=== PATIENT | female | born 1975 | race Hispanic/Latino ===

== ENCOUNTER 2018-08-26 20:48 | Emergency (ER) | payer SELFPAY ==
[2018-08-26] MEDS ORDERED: HYDROCODONE/APAP 10/325 TAB ONE (21:15)
[2018-08-26] MEDS ORDERED: KETOROLAC 30 MG/ML INJ ONE (22:13)
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
--- NOTE | 2018-08-26 23:14 | RAD REPORT ---
EXAM DESCRIPTION: RAD - Knee Right 3 View - 08/26/2018 10:07 pm CLINICAL HISTORY: Right knee pain status post fall FINDINGS: No fracture or dislocation is seen. An area of sclerosis involves the proximal tibia. It m ost likely is benign. Follow up x-ray in 3 months is recommended to assess stability
== END 2018-08-26 22:41 | disposition home or self-care (01) ==
LOC: ER 20:48
DX: M23.91 Unspecified internal derangement of right knee (principal); W18.39XA Other fall on same level, initial encounter; Y93.9 Activity, unspecified; Y92.89 Other specified places as the place of occurrence of the external cause; Z91.048 Other nonmedicinal substance allergy status; E11.9 Type 2 diabetes mellitus without complications
CPT/HCPCS: 96372; 99284

== ENCOUNTER 2018-12-03 19:54 | Emergency (ER) | payer SELFPAY ==
[2018-12-03 20:26] LABS: Absolute Lymphocytes (CBC) 2.3 K/uL (0.7-4.9); Absolute Monocytes 0.8 K/uL (0.1-1.3); Basophils % 0.6 % (0-1.3); Hematocrit 36.8 % (36.0-45.0); Lymphocytes % 27.1 % (15.3-44.8); MPV 9.6 fL (7.6-11.3); Monocytes % 9.2 % (3.3-12.3); RBC Red Blood Cell Count 4.56 M/uL (3.86-4.86)
[2018-12-03] MEDS ORDERED: MEPERIDINE HCL 25 MG/0.5 ML ONE (20:39)
[2018-12-03] MEDS ORDERED: PROMETHAZINE 25 MG/ML VIAL ONE (20:39)
[2018-12-03 20:45] LABS: ALT/SGPT 18 U/L (12-78); AST/SGOT 9 U/L (15-37); Albumin 3.1 g/dL (3.4-5.0); Alkaline Phosphatase 72 U/L (45-117); BUN Blood Urea Nitrogen 15 mg/dL (7-18); Bicarbonate 26 mmol/L (21-32); Bilirubin Direct < 0.1 mg/dL (0-0.2); Bilirubin Total 0.2 mg/dL (0.2-1.0); Glucose Level 385 mg/dL (74-106); Lipase 304 U/L (73-393); Potassium 3.9 mmol/L (3.5-5.1); Protein, Total 7.7 g/dL (6.4-8.2); Sodium Level 135 mmol/L (136-145)
[2018-12-03] MEDS ORDERED: NA CHLORIDE 0.9% 1,000 ML ONE (21:33)
[2018-12-03 21:38] LABS: Urine Blood 1+ (NEG); Urine Glucose 2+ (NEG); Urine Protein TRACE (NEG); Urine Specific Gravity 1.015 (1.005-1.030)
--- NOTE | 2018-12-03 23:58 | ER ---
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 pt c/o nausea. pt denies V/D. Transition of care: patient was not received from another setting of care. Onset of symptoms is unknown. Risk Assessment: Do you want to hurt yourself or someone else? Patient reports no desire to harm self or others. Initial Sepsis Screen: Does the patient meet any 2 criteria? No. Patient's initial sepsis screen is negative. Does the patient have a suspected source of infection? No. Patient's initial sepsis screen is negative. Care prior to arrival: None. 20:00 Method Of Arrival: Ambulatory ak1 20:00 Acuity: JOCYE 3 ak1 Triage Assessment: 20:01 General: Appears uncomfortable. ak1 20:10 General: Behavior is calm, cooperative, appropriate for age. Pain: Complains of pain in cc3 left lower quadrant and right lower quadrant and left upper quadrant. GI: Reports lower abdominal pain, upper abdominal pain. 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 - Social history:: Smoking status: Patient/guardian denies using tobacco, Patient uses alcohol. - Ebola Screening: : No symptoms or risks identified at this time. Screenin:10 Abuse screen: Denies threats or abuse. Denies injuries from another. Nutritional cc3 screening: No deficits noted. Tuberculosis screening: No symptoms or risk factors identified. Fall Risk Ambulatory Aid- None/Bed Rest/Nurse Assist (0 pts). Gait- Normal/Bed Rest/Wheelchair (0 pts) Mental Status- Oriented to own ability (0 pts). Assessment: 20:10 GI: Bowel sounds present X 4 quads. Abd is soft and non tender X 4 quads. cc3 21:18 Reassessment: Patient appears in no apparent distress at this time. Patient and/or cc3 family updated on plan of care and expected duration. Pain level reassessed. Patient is alert, oriented x 3, equal unlabored respirations, skin warm/dry/pink. 22:31 Reassessment: Patient appears in no apparent distress at this time. Patient and/or cc3 family updated on plan of care and expected duration. Pain level reassessed. Patient is alert, oriented x 3, equal unlabored respirations, skin warm/dry/pink. 23:35 Reassessment: Patient appears in no apparent distress at this time. Patient and/or cc3 family updated on plan of care and expected duration. Pain level reassessed. Patient is alert, oriented x 3, equal unlabored respirations, skin warm/dry/pink. Vital Signs: 20:01 BP 117 / 86; Pulse 99; Resp 18; Temp 98.1; Pulse Ox 99% on R/A; Weight 70.76 kg (R); ak1 Height 5 ft. 6 in. (167.64 cm) (R); Pain 10/10; 21:00 BP 125 / 84; Pulse 95; Resp 20 S; Pulse Ox 97% on R/A; cc3 22:30 BP 112 / 61; Pulse 92; Resp 18 S; Pulse Ox 98% on R/A; cc3 23:57 BP 119 / 66; Pulse 90; Resp 17 S; Pulse Ox 98% on R/A; cc3 20:01 Body Mass Index 25.18 (70.76 kg, 167.64 cm) ak1 ED Course: 19:59 Patient arrived in ED. am2 20:01 Triage completed. ak1 20:01 Arm band placed on Patient placed in an exam room, on a stretcher, Patient notified of ak1 wait time. 20:07 Mario Calvillo PA is PHCP. jr8 20:07 Sharad Mcnamara MD is Attending Physician. jr8 20:10 Shaylee Gomez is Primary Nurse. cc3 20:10 Patient has correct armband on for positive identification. Bed in low position. Call cc3 light in reach. Side rails up X 1. Pulse ox on. NIBP on. 20:15 Inserted saline lock: 20 gauge in right antecubital area, using aseptic technique. cc3 Blood collected. 21:25 CT completed. Patient tolerated procedure well. Patient moved back from CT. bq 22:53 CT Abd/Pelvis - Without Cont In Process Unspecified. EDMS 12/04 00:15 No provider procedures requiring assistance completed. IV discontinued, intact, cc3 bleeding controlled, No redness/swelling at site. Pressure dressing applied. Administered Medications: 12/03 20:30 Drug: Demerol 25 mg Route: IVP; Site: right antecubital; cc3 21:11 Follow up: Response: No adverse reaction; Pain is decreased cc3 20:33 Drug: Phenergan 12.5 mg Route: IVP; Site: right antecubital; cc3 21:11 Follow up: Response: No adverse reaction; Nausea is decreased cc3 21:30 Drug: NS 0.9% 1000 ml Route: IV; Rate: 1000 ml; Site: right antecubital; cc3 22:30 Follow up: Response: No adverse reaction; IV Status: Completed infusion; IV Intake: cc3 1000ml Intake: 22:30 IV: 1000ml; Total: 1000ml. cc3 Outcome: 23:57 Discharge ordered by MD. bronson 12/04 00:15 Discharged to home ambulatory. cc3 Condition: stable Discharge instructions given to patient, Instructed on discharge instructions, follow up and referral plans. medication usage, Demonstrated understanding of instructions, follow-up care, medications, Prescriptions given X 3. 00:17 Patient left the ED. cc3 Signatures: Dispatcher [employer] EDSD Emily Knowles Josh, PA PA jr8 Elodia Gaines RN RN Jillian Pink Charlene cc3 Corrections: (The following items were deleted from the chart) 00:52 03 23:35 BP 119 / 66; Pulse 90bpm; Resp 17bpm; Spontaneous; Pulse Ox 98% RA; cc3 cc3
--- NOTE | 2018-12-03 23:59 | EDPHYS ---
Physician Documentation [facility] Name: Patricia Whitaker Age: 43 yrs Sex: Female : 1975 Arrival Date: 12/03/2018 Time: 19:59 Bed 20 Private MD: ED Physician Sharad Mcnamara HPI: 12/03 21:22 This 43 yrs old Female presents to ER via Ambulatory with complaints of jr8 Abdominal Pain. 21:22 The patient presents with abdominal pain in the left upper quadrant, right lower jr8 quadrant, in the left lower quadrant. Onset: The symptoms/episode began/occurred acutely, today. The symptoms do not radiate. Associated signs and symptoms: Pertinent positives: nausea, vomiting, and diarrhea. The symptoms are described as stabbing. Modifying factors: The symptoms are alleviated by nothing, the symptoms are aggravated by nothing. Severity of pain: At its worst the pain was moderate in the emergency department the pain is unchanged. The patient has not experienced similar symptoms in the past. The patient has not recently seen a physician. 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 - Social history:: Smoking status: Patient/guardian denies using tobacco, Patient uses alcohol. - Ebola Screening: : No symptoms or risks identified at this time. ROS: 21:22 Eyes: Negative for injury, pain, redness, and discharge, ENT: Negative for injury, jr8 pain, and discharge, Neck: Negative for injury, pain, and swelling, Cardiovascular: Negative for chest pain, palpitations, and edema, Respiratory: Negative for shortness of breath, cough, wheezing, and pleuritic chest pain, Back: Negative for injury and pain, MS/Extremity: Negative for injury and deformity, Skin: Negative for injury, rash, and discoloration, Neuro: Negative for headache, weakness, numbness, tingling, and seizure. 21:22 Abdomen/GI: Positive for abdominal pain, nausea, vomiting, and diarrhea, Negative for abdominal distension, anorexia, dysphagia, hematemesis, black/tarry stool, rectal pain, rectal bleeding, bowel incontinence, flatulence. Exam: 21:22 Eyes: Pupils equal round and reactive to light, extra-ocular motions intact. Lids and jr8 lashes normal. Conjunctiva and sclera are non-icteric and not injected. Cornea within normal limits. Periorbital areas with no swelling, redness, or edema. ENT: Nares patent. No nasal discharge, no septal abnormalities noted. Tympanic membranes are normal and external auditory canals are clear. Oropharynx with no redness, swelling, or masses, exudates, or evidence of obstruction, uvula midline. Mucous membranes moist. Neck: Trachea midline, no thyromegaly or masses palpated, and no cervical lymphadenopathy. Supple, full range of motion without nuchal rigidity, or vertebral point tenderness. No Meningismus. Cardiovascular: Regular rate and rhythm with a normal S1 and S2. No gallops, murmurs, or rubs. Normal PMI, no JVD. No pulse deficits. Respiratory: Lungs have equal breath sounds bilaterally, clear to auscultation and percussion. No rales, rhonchi or wheezes noted. No increased work of breathing, no retractions or nasal flaring. Back: No spinal tenderness. No costovertebral tenderness. Full range of motion. Skin: Warm, dry with normal turgor. Normal color with no rashes, no lesions, and no evidence of cellulitis. MS/ Extremity: Pulses equal, no cyanosis. Neurovascular intact. Full, normal range of motion. Neuro: Awake and alert, GCS 15, oriented to person, place, time, and situation. Cranial nerves II-XII grossly intact. Motor strength 5/5 in all extremities. Sensory grossly intact. Cerebellar exam normal. Normal gait. 21:22 Abdomen/GI: Inspection: abdomen appears normal, Bowel sounds: active, all quadrants, Palpation: soft, in all quadrants, moderate abdominal tenderness, in the left upper quadrant, right lower quadrant and left lower quadrant, mass, is not appreciated, rebound tenderness, is not appreciated, voluntary guarding, is not appreciated, involuntary guarding, is not appreciated, no appreciated organomegaly, Indicators: McBurney's point is not tender, Pereira's sign is negative, Rovsing's sign is negative, Liver: tenderness, is not appreciated. Vital Signs: 20:01 BP 117 / 86; Pulse 99; Resp 18; Temp 98.1; Pulse Ox 99% on R/A; Weight 70.76 kg (R); ak1 Height 5 ft. 6 in. (167.64 cm) (R); Pain 10/10; 21:00 BP 125 / 84; Pulse 95; Resp 20 S; Pulse Ox 97% on R/A; cc3 22:30 BP 112 / 61; Pulse 92; Resp 18 S; Pulse Ox 98% on R/A; cc3 23:57 BP 119 / 66; Pulse 90; Resp 17 S; Pulse Ox 98% on R/A; cc3 20:01 Body Mass Index 25.18 (70.76 kg, 167.64 cm) ak1 MDM: 20:07 Patient medically screened. jr8 23:56 Differential diagnosis: appendicitis, bowel obstruction, diverticulitis, non-specific jr8 abd pain, pancreatitis, Pyelonephritis, Ureterolithiasis, urinary tract infection, infectious colitis, ovarian or uterine mass. Data reviewed: vital signs, nurses notes, lab test result(s), radiologic studies, CT scan, and as a result, I will discharge patient. Data interpreted: Pulse oximetry: on room air is 98 %. Interpretation: normal. Counseling: I had a detailed discussion with the patient and/or guardian regarding: the historical points, exam findings, and any diagnostic results supporting the discharge/admit diagnosis, lab results, radiology results, the need for outpatient follow up, a family practitioner, a waist cutter, to return to the emergency department if symptoms worsen or persist or if there are any questions or concerns that arise at home. Response to treatment: the patient's symptoms have resolved after treatment. 12/04 00:07 ED course: Discussed with patient that we could not find any acute or surgically jr8 emergent findings on her CT or lab work. Patient stated that this is the third time she has had this and that nobody can find what is wrong. Asked if she has followed up with gynecology and gastroenterology. Patient has not as of yet. Recommended f/u with them at this point . 12/03 20:07 Order name: Basic Metabolic Panel; Complete Time: 21:03 jr8 12/03 20:07 Order name: CBC with Diff; Complete Time: 20:32 12/03 20:07 Order name: Creatinine for Radiology; Complete Time: 20:43 [facility] 12/03 20:07 Order name: Hepatic Function; Complete Time: 21:03 12/03 20:07 Order name: Lipase; Complete Time: 21:03 12/03 20:44 Order name: Urine Dipstick--Ancillary (enter results); Complete Time: 21:39 [facility] 12/03 20:07 Order name: IV Saline Lock; Complete Time: 20:26 [facility] 12/03 20:07 Order name: Labs collected and sent; Complete Time: 20:26 [facility] 12/03 20:07 Order name: Urine Test (obtain specimen); Complete Time: 20:26 [facility] 12/03 20:43 Order name: CT Abd/Pelvis - Without Cont 12/03 20:44 Order name: Urine --Ancillary (enter results); Complete Time: 21:39 [facility] 12/03 20:07 Order name: Urine Dipstick-Ancillary (obtain specimen); Complete Time: 20:26 Administered Medications: 12/03 20:30 Drug: Demerol 25 mg Route: IVP; Site: right antecubital; cc3 21:11 Follow up: Response: No adverse reaction; Pain is decreased cc3 20:33 Drug: Phenergan 12.5 mg Route: IVP; Site: right antecubital; cc3 21:11 Follow up: Response: No adverse reaction; Nausea is decreased cc3 21:30 Drug: NS 0.9% 1000 ml Route: IV; Rate: 1000 ml; Site: right antecubital; cc3 22:30 Follow up: Response: No adverse reaction; IV Status: Completed infusion; IV Intake: cc3 1000ml Disposition: 12/04 02:52 Co-signature as Attending Physician, Sharad Mcnamara MD. Disposition: 12/03/18 23:57 Discharged to Home. Impression: Abdominal and pelvic pain, Constipation. - Condition is Stable. - Discharge Instructions: Abdominal Pain, Adult, Constipation, Adult. - Prescriptions for Ibuprofen 800 mg Oral Tablet - take 1 tablet by ORAL route every 12 hours As needed take with food; 20 tablet. Zofran 4 mg Oral Tablet - take 1 tablet by ORAL route every 12 hours As needed; 20 tablet. Miralax 17 gram/dose Oral - take 1 packet by ORAL route once daily dilute powder in 8 ounces of water or juice; 1 box. - Medication Reconciliation Form, Thank You Letter, Antibiotic Education, Prescription Opioid Use form. - Follow up: Private Physician; When: 2 - 3 days; Reason: Recheck today's complaints, Continuance of care, Re-evaluation by your physician. - Problem is new. - Symptoms have improved. Signatures: Dispatcher [employer] EDMS Mario Calvillo PA PA jr8 Elodia Gaines, RN RN ak1 Sharad Mcnamara MD MD gs Cordel, Charlene cc3 Corrections: (The following items were deleted from the chart) 12/03 23:57 23:57 12/03/2018 23:57 Discharged to Home. Impression: Abdominal and pelvic pain. jr8 Condition is Stable. Forms are Medication Reconciliation Form, Thank You Letter, Antibiotic Education, Prescription Opioid Use. Follow up: Private Physician; When: 2 - 3 days; Reason: Recheck today's complaints, Continuance of care, Re-evaluation by your physician. Problem is new. Symptoms have improved. jr8 12/04 00:09 12/03 23:56 Differential diagnosis: appendicitis, bowel obstruction, diverticulitis, jr8 non-specific abd pain, pancreatitis, Pyelonephritis, Ureterolithiasis, urinary tract infection, infectious colitis jr8 12/04 00:17 12/03 23:57 12/03/2018 23:57 Discharged to Home. Impression: Abdominal and pelvic pain; cc3 Constipation. Condition is Stable. Forms are Medication Reconciliation Form, Thank You Letter, Antibiotic Education, Prescription Opioid Use. Follow up: Private Physician; When: 2 - 3 days; Reason: Recheck today's complaints, Continuance of care, Re-evaluation by your physician. Problem is new. Symptoms have improved. jr8
--- NOTE | 2018-12-04 14:18 | RAD REPORT ---
EXAM DESCRIPTION: Abdomen Pelvis Wo Contrast. CLINICAL HISTORY: 43 years Femal no IV or oral contrast; Abd pain COMPARISON: None. TECHNIQUE: Images were obtained in axial and coronal planes. Sagittal images incompletely available. No oral or intravenous contrast was administered. This exam was performed according to our departmental dose-optimization program, which includes autom ated exposure control, adjustment of the mA and/or kV according to patient size and/or less of iterat samara reconstruction technique. FINDINGS: No obstructing renal calcifications. No hydronephrosis bilaterally. Unremarkable bladder. Punctate calcifications within the pelvis thought to be vascular in nature. No abnormality involving the liver, spleen, pancreas or adrenal glands bilaterally. Contracted gallbl adder. Appendix is within normal limits. No bowel obstruction, perforation or inflammation. Moderate constip ation. Deviation uterus to to the right. Small periumbilical hernia which contains mesenteric fat. No dilatation of the abdominal aorta. Splenic artery calcifications. No adenopathy or abnormal fluid collection seen. No abnormality in the lower lungs bilaterally. No acute osseous abnormality. IMPRESSION: Nonobstructing renal calcifications bilaterally. No hydronephrosis bilaterally. Appendix within normal limits. Mildly contracted gallbladder. Electronically signed by Pradip Crocker MD 12/03/2018 11:06 PM SLOT MACHINE KEY PERSON Due to temporary technical issues with the PACS/Fluency reporting system, reports are being signed by the in house radiologist as a courtesy to ensure prompt reporting. The interpreting radiologist is f ully responsible for the content of the report.
== END 2018-12-04 00:17 | disposition home or self-care (01) ==
LOC: ER 19:54
DX: K59.00 Constipation, unspecified (principal); E11.9 Type 2 diabetes mellitus without complications; Z91.018 Allergy to other foods; Z91.048 Other nonmedicinal substance allergy status
CPT/HCPCS: 36415; 74176; 80048; 80076; 81003; 81025; 83690; 85025; 96361; 96374; 96375; 99284; J2175; J2550; J7030

== ENCOUNTER 2018-12-06 10:18 | Emergency (ER) | payer SELFPAY ==
[2018-12-06 11:15] LABS: Absolute Lymphocytes (CBC) 2.1 K/uL (0.7-4.9); Absolute Monocytes 0.5 K/uL (0.1-1.3); Basophils % 0.5 % (0-1.3); Eosinophils % 2.5 % (0-4.4); Hematocrit 40.1 % (36.0-45.0); Lymphocytes % 30.9 % (15.3-44.8); MPV 9.9 fL (7.6-11.3); Monocytes % 7.2 % (3.3-12.3); RBC Red Blood Cell Count 4.98 M/uL (3.86-4.86)
[2018-12-06] MEDS ORDERED: NA CHLORIDE 0.9% 1,000 ML ONE ×2 (11:18→12:35)
[2018-12-06 11:36] LABS: ALT/SGPT 18 U/L (12-78); AST/SGOT 10 U/L (15-37); Albumin 3.4 g/dL (3.4-5.0); Alkaline Phosphatase 86 U/L (45-117); BUN Blood Urea Nitrogen 17 mg/dL (7-18); Bicarbonate 24 mmol/L (21-32); Bilirubin Direct < 0.1 mg/dL (0-0.2); Bilirubin Total 0.2 mg/dL (0.2-1.0); Lipase 442 U/L (73-393); Potassium 4.6 mmol/L (3.5-5.1); Protein, Total 8.9 g/dL (6.4-8.2); Sodium Level 133 mmol/L (136-145)
[2018-12-06 11:39] LABS: Urine Blood TRACE (NEG); Urine Glucose 3+ (NEG); Urine Protein 1+ (NEG); Urine pH 5.5 (5.0-7.0)
[2018-12-06 11:41] LABS: Urine Bacteria 20-50 /HPF (<20); Urine White Blood Cell Casts 0-5 /LPF (NONE SEEN)
[2018-12-06 11:42] LABS: Urine Culture Reflex Order NOT NEEDED
[2018-12-06 11:47] LABS: Glucose Level 414 mg/dL (74-106)
[2018-12-06] MEDS ORDERED: CEFTRIAXONE/SWI 1gm 1 GM/10 ML SYR ONE (12:35)
[2018-12-06] MEDS ORDERED: INSULIN -REGULAR HUMAN 50 UNIT/0.5 ML ML ONE (12:35)
--- NOTE | 2018-12-06 14:04 | EDPHYS ---
Physician Documentation [facility] Name: Patricia Whitaker Age: 43 yrs Sex: Female : 1975 Arrival Date: 12/06/2018 Time: 10:21 Bed 4 Private MD: ED Physician Tino Burroughs HPI: 12/06 10:57 This 43 yrs old Female presents to ER via Ambulatory with complaints of High snw Blood Sugar, Dizziness. 10:57 The patient or guardian reports polyuria. Onset: The symptoms/episode began/occurred snw gradually. Associated signs and symptoms: Pertinent positives: ketones in urine, polyuria. Current symptoms: In the emergency department the patient's symptoms are unchanged from the initial presentation. It is unknown whether or not the patient has had similar symptoms in the past. The patient has been recently seen by a physician: the patient's primary care provider, earlier today, with similar presenting complaints, well woman exam/STI screening today. Pt in ED this weekend and dx constipation from pain medication use. 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 - Social history:: Smoking status: Patient/guardian denies using tobacco. - Ebola Screening: : No symptoms or risks identified at this time. ROS: 10:57 Eyes: Negative for injury, pain, redness, and discharge, ENT: Negative for injury, snw pain, and discharge, Neck: Negative for injury, pain, and swelling, Cardiovascular: Negative for chest pain, palpitations, and edema, Respiratory: Negative for shortness of breath, cough, wheezing, and pleuritic chest pain. 10:57 Back: Negative for injury and pain, : Negative for injury, bleeding, discharge, and swelling, MS/Extremity: Negative for injury and deformity, Skin: Negative for injury, rash, and discoloration, Neuro: Negative for headache, weakness, numbness, tingling, and seizure. 10:57 Constitutional: Positive for body aches, fatigue, malaise. 10:57 Abdomen/GI: Positive for abdominal pain. Exam: 10:55 Eyes: Pupils equal round and reactive to light, extra-ocular motions intact. Lids and snw lashes normal. Conjunctiva and sclera are non-icteric and not injected. Cornea within normal limits. Periorbital areas with no swelling, redness, or edema. ENT: Nares patent. No nasal discharge, no septal abnormalities noted. Tympanic membranes are normal and external auditory canals are clear. Oropharynx with no redness, swelling, or masses, exudates, or evidence of obstruction, uvula midline. Mucous membranes moist. Neck: Trachea midline, no thyromegaly or masses palpated, and no cervical lymphadenopathy. Supple, full range of motion without nuchal rigidity, or vertebral point tenderness. No Meningismus. Chest/axilla: Normal chest wall appearance and motion. Nontender with no deformity. No lesions are appreciated. Cardiovascular: Regular rate and rhythm with a normal S1 and S2. No gallops, murmurs, or rubs. Normal PMI, no JVD. No pulse deficits. Respiratory: Lungs have equal breath sounds bilaterally, clear to auscultation and percussion. No rales, rhonchi or wheezes noted. No increased work of breathing, no retractions or nasal flaring. Abdomen/GI: Soft, mildly tender, with normal bowel sounds. No distension or tympany. No guarding or rebound. Evidence of tenderness to low abd/perineum. Back: No spinal tenderness. No costovertebral tenderness. Full range of motion. Skin: Warm, dry with normal turgor. Normal color with no rashes, no lesions, and no evidence of cellulitis. MS/ Extremity: Pulses equal, no cyanosis. Neurovascular intact. Full, normal range of motion. Neuro: Awake and alert, GCS 15, oriented to person, place, time, and situation. Cranial nerves II-XII grossly intact. Motor strength 5/5 in all extremities. Sensory grossly intact. Cerebellar exam normal. Normal gait. Psych: Awake, alert, with orientation to person, place and time. Behavior, mood, and affect are within normal limits, depressed. 10:55 Constitutional: The patient appears alert, awake, anxious, uncomfortable. Vital Signs: 10:34 BP 133 / 85; Pulse 84; Resp 18 S; Temp 98.5(TE); Pulse Ox 99% on R/A; Weight 70.76 kg aa5 (R); Height 5 ft. 5 in. (165.10 cm) (R); Pain 0/10; 13:20 BP 128 / 73; Pulse 92; Resp 18; Pulse Ox 99% on R/A; aj 14:29 BP 121 / 85; Pulse 92; Resp 17; Pulse Ox 99% on R/A; aj 10:34 Body Mass Index 25.96 (70.76 kg, 165.10 cm) aa5 MDM: 10:43 Patient medically screened. snw 14:03 Data reviewed: vital signs, nurses notes. Data interpreted: Pulse oximetry: on room air snw is 99 %. Interpretation: normal. Counseling: I had a detailed discussion with the patient and/or guardian regarding: the historical points, exam findings, and any diagnostic results supporting the discharge/admit diagnosis, lab results, the need for outpatient follow up, to return to the emergency department if symptoms worsen or persist or if there are any questions or concerns that arise at home. Response to treatment: the patient's symptoms have mildly improved after treatment. Special discussion: Based on the patient's Hx, exam, and Dx evaluation, there is no indication for emergent surgery or inpatient Tx. It is understood by the patient/guardian that if the Sx's persist or worsen they need to return immediately for re-evaluation. Based on the history and exam findings, there is no indication for further emergent testing or inpatient evaluation. I discussed with the patient/guardian the need to see the primary care provider for further evaluation of the symptoms. 12/06 10:46 Order name: Basic Metabolic Panel; Complete Time: 11:53 snw 12/06 10:46 Order name: CBC with Diff; Complete Time: 11:53 snw 12/06 10:46 Order name: Hepatic Function; Complete Time: 11:53 snw 12/06 10:46 Order name: Lipase; Complete Time: 11:53 snw 12/06 10:46 Order name: Urine Culture snw 12/06 10:46 Order name: Urine Microscopic Only; Complete Time: 11:53 snw 12/06 10:46 Order name: IV Saline Lock; Complete Time: 11:05 snw 12/06 11:08 Order name: Urine Dipstick--Ancillary (enter results); Complete Time: 11:53 bd 12/06 11:08 Order name: Urine --Ancillary (enter results); Complete Time: 11:53 bd 12/06 10:46 Order name: Labs collected and sent; Complete Time: 11:05 snw 12/06 10:46 Order name: Urine Dipstick-Ancillary (obtain specimen); Complete Time: 11:05 snw 12/06 12:46 Order name: FSBS; Complete Time: 13:47 snw Administered Medications: 11:24 Drug: NS 0.9% 1000 ml Route: IV; Rate: 1 bolus; Site: left antecubital; aj 14:39 Follow up: Response: No adverse reaction; IV Status: Completed infusion; IV Intake: aj 1000ml 12:29 Drug: NS 0.9% 1000 ml Route: IV; Rate: 1 bolus; Site: left antecubital; aj 14:38 Follow up: Response: No adverse reaction; IV Status: Completed infusion; IV Intake: aj 1000ml 12:29 Drug: Rocephin 1 grams Route: IV; Rate: calculated rate; Site: left antecubital; aj 12:30 Follow up: Response: No adverse reaction; IV Status: Completed infusion; IV Intake: 10mlaj 12:29 Drug: Insulin Regular Human 5 units {Co-Signature: (Elkin Lizarraga RN).} Route: aj Sub-Q; Site: left upper abdomen; 14:37 Follow up: Response: Blood sugar is lowered aj 12:29 Drug: Insulin Regular Human 5 units {Co-Signature: (Elkin Lizarraga RN).} Route: IVP; aj Site: left antecubital; 14:36 Follow up: Response: Blood sugar is lowered aj Point of Care Testing: Blood Glucose: 10:37 Blood Glucose: High (>450 mg/dL); aa5 13:46 Blood Glucose: 294 mg/dL; jb1 Ranges: Critical Glucose Levels:Adult <50 mg/dl or >400 mg/dl <40 mg/dl or >180 mg/dl Disposition: 16:38 Co-signature as Attending Physician, Tino Burroughs MD. rn Disposition: 12/06/18 14:03 Discharged to Home. Impression: Diabetes mellitus due to underlying condition with hyperglycemia, Urinary tract infection, site not specified. - Condition is Stable. - Discharge Instructions: Type 2 Diabetes Mellitus, Diagnosis, Adult, Urinary Tract Infection, Adult, Diabetes Mellitus and Food, Rehydration, Adult. - Prescriptions for Macrobid 100 mg Oral Capsule - take 1 capsule by ORAL route every 12 hours for 10 days; 20 capsule. Doxycycline Hyclate 100 mg Oral Tablet - take 1 tablet by ORAL route every 12 hours; 20 tablet. promethazine 25 mg Oral Tablet - take 1 tablet by ORAL route every 6 hours As needed; 12 tablet. - Work release form, Medication Reconciliation Form, Thank You Letter, Antibiotic Education, Prescription Opioid Use form. - Follow up: Private Physician; When: 2 - 3 days; Reason: Recheck today's complaints, Continuance of care, Re-evaluation by your physician. Follow up: Emergency Department; When: As needed; Reason: Worsening of condition. Signatures: Dispatcher [employer] EDMS Jillian Figueroa RN RN aj Therrien, Shelly, ANABELL-C MANAGER [employer] Tino Burroughs MD MD rn Calderon, Audri, RN RN aa5 Elkin Lizarraga RN bp Corrections: (The following items were deleted from the chart) 14:39 14:03 12/06/2018 14:03 Discharged to Home. Impression: Diabetes mellitus due to aj underlying condition with hyperglycemia; Urinary tract infection, site not specified. Condition is Stable. Discharge Instructions: Type 2 Diabetes Mellitus, Diagnosis, Adult, Urinary Tract Infection, Adult, Diabetes Mellitus and Food, Rehydration, Adult. Prescriptions for Macrobid 100 mg Oral Capsule - take 1 capsule by ORAL route every 12 hours for 10 days; 20 capsule, Doxycycline Hyclate 100 mg Oral Tablet - take 1 tablet by ORAL route every 12 hours; 20 tablet, promethazine 25 mg Oral Tablet - take 1 tablet by ORAL route every 6 hours As needed; 12 tablet. and Forms are Work release form, Medication Reconciliation Form, Thank You Letter, Antibiotic Education, Prescription Opioid Use. Follow up: Private Physician; When: 2 - 3 days; Reason: Recheck today's complaints, Continuance of care, Re-evaluation by your physician. Follow up: Emergency Department; When: As needed; Reason: Worsening of condition. snw
--- NOTE | 2018-12-06 14:04 | ER ---
Nurse's Notes [facility] Name: Patricia Whitaker Age: 43 yrs Sex: Female : 1975 Arrival Date: 12/06/2018 Time: 10:21 Bed 4 Private MD: Diagnosis: Diabetes mellitus due to underlying condition with hyperglycemia;Urinary tract infection, site not specified Presentation: 12/06 10:31 Presenting complaint: Patient states: "I went to a clinic for a regular check up and aa5 they said that my blood sugar was 540 to come to the ER". Pt c/o dizziness, pt also reports nausea. Transition of care: patient was not received from another setting of care. Onset of symptoms was December 06, 2018. Risk Assessment: Do you want to hurt yourself or someone else? Patient reports no desire to harm self or others. Initial Sepsis Screen: Does the patient meet any 2 criteria? No. Patient's initial sepsis screen is negative. Does the patient have a suspected source of infection? No. Patient's initial sepsis screen is negative. Care prior to arrival: None. 10:31 Method Of Arrival: Ambulatory aa5 10:31 Acuity: JOYCE 2 aa5 RABBIT BREEDER: 10:34 LMP 11/14/2018 aa5 Historical: - Allergies: 10:34 Iodine; aa5 10:34 Yeast; aa5 - Home Meds: 10:34 glyburide 5 mg Oral tab 1 tab 2 times per day [Active]; metformin 850 mg Oral tab 1 tab aa5 2 times per day [Active]; - PMHx: 10:34 Diabetes - NIDDM; aa5 - PSHx: 10:34 ; aa5 - Immunization history:: Adult Immunizations unknown. - Social history:: Smoking status: Patient/guardian denies using tobacco. - Ebola Screening: : No symptoms or risks identified at this time. Screenin:09 Abuse screen: Denies threats or abuse. Denies injuries from another. Nutritional aj screening: No deficits noted. Tuberculosis screening: No symptoms or risk factors identified. Fall Risk None identified. Assessment: 11:09 General: Appears in no apparent distress. comfortable, Behavior is calm, cooperative, aj appropriate for age. Pain: Complains of pain in entire body. Neuro: Level of Consciousness is awake, alert, obeys commands, Oriented to person, place, time, situation, Appropriate for age. Respiratory: Airway is patent Respiratory effort is even, unlabored, Respiratory pattern is regular, symmetrical. : Reports urinary frequency. Derm: Skin is intact, is healthy with good turgor, Skin is pink, warm \\T\\ dry. normal. 14:33 Reassessment: Patient appears in no apparent distress at this time. No changes from aj previously documented assessment. Patient and/or family updated on plan of care and expected duration. Pain level reassessed. Patient is alert, oriented x 3, equal unlabored respirations, skin warm/dry/pink. Patient states feeling better. Patient states symptoms have improved. Vital Signs: 10:34 BP 133 / 85; Pulse 84; Resp 18 S; Temp 98.5(TE); Pulse Ox 99% on R/A; Weight 70.76 kg aa5 (R); Height 5 ft. 5 in. (165.10 cm) (R); Pain 0/10; 13:20 BP 128 / 73; Pulse 92; Resp 18; Pulse Ox 99% on R/A; aj 14:29 BP 121 / 85; Pulse 92; Resp 17; Pulse Ox 99% on R/A; aj 10:34 Body Mass Index 25.96 (70.76 kg, 165.10 cm) aa5 ED Course: 10:21 Patient arrived in ED. mr 10:30 [facility] Clarke [facility]C [facility] snw 10:30 Tino Burroughs MD is Attending Physician. snw 10:32 Triage completed. aa5 10:32 Arm band placed on. aa5 10:38 Elkin Lizarraga, FARHAD is Primary Nurse. bp 11:09 Patient has correct armband on for positive identification. aj 11:09 Inserted saline lock: 20 gauge in left antecubital area, using aseptic technique. Blood aj collected. 14:33 No provider procedures requiring assistance completed. IV discontinued, intact, aj bleeding controlled, No redness/swelling at site. Pressure dressing applied. Administered Medications: 11:24 Drug: NS 0.9% 1000 ml Route: IV; Rate: 1 bolus; Site: left antecubital; aj 14:39 Follow up: Response: No adverse reaction; IV Status: Completed infusion; IV Intake: aj 1000ml 12:29 Drug: NS 0.9% 1000 ml Route: IV; Rate: 1 bolus; Site: left antecubital; aj 14:38 Follow up: Response: No adverse reaction; IV Status: Completed infusion; IV Intake: aj 1000ml 12:29 Drug: Rocephin 1 grams Route: IV; Rate: calculated rate; Site: left antecubital; aj 12:30 Follow up: Response: No adverse reaction; IV Status: Completed infusion; IV Intake: 10mlaj 12:29 Drug: Insulin Regular Human 5 units {Co-Signature: (Elkin Lizarraga RN).} Route: aj Sub-Q; Site: left upper abdomen; 14:37 Follow up: Response: Blood sugar is lowered aj 12:29 Drug: Insulin Regular Human 5 units {Co-Signature: (Elkin Lizarraga RN).} Route: IVP; aj Site: left antecubital; 14:36 Follow up: Response: Blood sugar is lowered aj Point of Care Testing: Blood Glucose: 10:37 Blood Glucose: High (>450 mg/dL); aa5 13:46 Blood Glucose: 294 mg/dL; jb1 Ranges: Intake: 12:30 IV: 10ml; Total: 10ml. aj 14:38 IV: 1000ml; Total: 1010ml. aj 14:39 IV: 1000ml; Total: 2010ml. aj Outcome: 14:03 Discharge ordered by . contreras 14:33 Discharged to home ambulatory. aj 14:33 Condition: good 14:33 Discharge instructions given to patient, Instructed on discharge instructions, follow up and referral plans. medication usage, Demonstrated understanding of instructions, follow-up care, medications, Prescriptions given X 3. 14:39 Patient left the ED. aj Addendum: 12/09/2018 07:32 Addendum: Culture Results: Positive urine culture. No further action required. h b Signatures: Cipriano Valerio jb1 Jillian Figueroa RN RN Arpita Benson, GETTER WELDER-C GETTER WELDER-Ethan Celeste DormanMichelle RN FARHAD aa5 Maria L Phan RN RN hb Peltier, Brian, RN RN bp Elkin Lizarraga RN bp
== END 2018-12-06 14:39 | disposition home or self-care (01) ==
LOC: ER 10:18
DX: N39.0 Urinary tract infection, site not specified (principal); E11.65 Type 2 diabetes mellitus with hyperglycemia; Z91.018 Allergy to other foods; Z91.048 Other nonmedicinal substance allergy status
CPT/HCPCS: 36415; 80048; 80076; 81003; 81015; 81025; 82962; 83690; 85025; 87077; 87086; 87088; 87186; 96361; 96372; 96374; 96375; 99284; J0696; J7030

== ENCOUNTER 2021-06-27 08:56 | Emergency (ER) | payer SELFPAY ==
--- OUTSIDE RECORDS SUMMARY | 2021-06-27 08:58 | XMS REPORT | Continuity of Care Document ---
:1975 Author Organization [facility] t Address [address] [place] [address] [place] [address] Care Team Providers Name Role Phone Unavailable Unavailable Unavailable Problems This patient has no known problems. Allergies, Adverse Reactions, Alerts This patient has no known allergies or adverse reactions. Medications This patient has no known medications. Procedures This patient has no known procedures. Results This patient has no known results.
[2021-06-27 09:07] LABS: Urine Blood 2+ (Negative); Urine Glucose 2+ (Negative); Urine Protein Negative (Negative); Urine Specific Gravity <=1.005 (1.005-1.030); Urine pH 6.5 (5.0-7.0)
[2021-06-27 09:23] LABS: Absolute Lymphocytes (CBC) 2.5 K/uL (0.7-4.9); Basophils % 0.7 % (0-1.3); Hematocrit 30.9 % (36.0-45.0); Lymphocytes % 37.4 % (15.3-44.8); MPV 8.7 fL (7.6-11.3); RBC Red Blood Cell Count 3.98 M/uL (3.86-4.86)
[2021-06-27 09:29] LABS: BUN Blood Urea Nitrogen 17 mg/dL (7-18); Bicarbonate 22 mmol/L (21-32); Glucose Level 332 mg/dL (74-106); Sodium Level 134 mmol/L (136-145)
[2021-06-27] MEDS ORDERED: NA CHLORIDE 0.9% 1,000 ML ONE ×2 (09:33→10:55)
[2021-06-27 10:20] LABS: Anisocytosis 1+; Blood Morphology Comment NOTED (NOT SEEN); Macrocytosis 1+; Platelet Estimate ADEQ; White Blood Cell Scan OK (OK)
[2021-06-27 10:21] LABS: Polychromasia SLIGHT
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
[2021-06-27 11:45] VITALS: TEMP 98
[2021-06-27 11:46] VITALS: BP 134/90; O2SAT 100
== END 2021-06-27 11:30 | disposition home or self-care (01) ==
LOC: ER 08:56
DX: E11.65 Type 2 diabetes mellitus with hyperglycemia (principal); Z88.8 Allergy status to other drugs, medicaments and biological substances; Z91.018 Allergy to other foods
CPT/HCPCS: 36415; 80048; 81003; 82010; 82947; 85025; 96360; 96361; 99284; J7030

== ENCOUNTER → 2023-12-20 | Emergency (ER) | payer SELFPAY ==
[~2023-12-20] MED LIST: CEFTRIAXONE 1000 MG/VIAL ONE; DICYCLOMINE HCL 20 MG/2 ML AMP IM ONE; DIPHENOX/ATROP SULF 1 TAB PO ONE; INSULIN REGULAR (HUMAN) 100 UNIT/ML ONE; METOCLOPRAMIDE 10 MG/2mL INJ ONE; MORPHINE 4 MG/ML SYR ONE; NA CHLORIDE 0.9% 2,000 ML ONE; NA CHLORIDE 0.9% 50 ML ONE; ONDANSETRON 4 MG/2 ML VIAL ONE; metroNIDAZOLE 500 MG TABLET ONE
--- OUTSIDE RECORDS SUMMARY | 2023-12-20 01:17 | XMS REPORT | Continuity of Care Document ---
Author Name Unknown Address [address] [place] [address] [facility] Address [address] [place] [address] [address] [place] [address] Care Team Providers Care Trouble Dispatcher Name Role Phone Unavailable Unavailable Unavailable Allergies, Adverse Reactions, Alerts Allergy Name Allergy Type Status Severity Reaction(s) Onset Date Inactive Date Treating Clinician Comments Source IODINE DRUG INGREDI Active Hives 06-17 00:00: 00 [facility] Encounters Start Date/Time End Date/Time Encounter Type Admission Type Attending Clinicians Care Facility Care Department Encounter ID Source 2021-08-31 01:28:36 Emergency [facility] [id number] [facility]
[2023-12-20 02:30] LABS: Absolute Lymphocytes (CBC) 1.5 K/uL (0.7-4.9); Hematocrit 33.8 % (36.0-45.0); Lymphocytes % 10.7 % (15.3-44.8); MCV 84.9 fL (80-100); MPV 9.3 fL (7.6-11.3); Platelets 262 thou/uL (152-406); RBC Red Blood Cell Count 3.98 M/uL (3.86-4.86)
[2023-12-20 02:30] LABS: Calcium Oxalate Crystals- Ur Few /HPF (None Seen); Specific Gravity 1.023 (1.005-1.030); Urine Bacteria None Seen /HPF (<20); Urine Bilirubin NEGATIVE (Negative); Urine Blood 2+ (Negative); Urine Clarity Extremely Turbid (Clear); Urine Color Yellow (Yellow); Urine Glucose 3+ (Negative); Urine Mucus Slight /HPF (None Seen); Urine Protein 3+ (Negative); Urine Urobilinogen Normal (Normal); Urine pH 5.5 (5.0-7.0)
[2023-12-20 02:33] LABS: Specific Gravity 1.023 (1.005-1.030)
[2023-12-20 03:11] LABS: Albumin 2.4 g/dL (3.4-5.0); Bilirubin Total 0.1 mg/dL (0.2-1.0)
[2023-12-20 03:18] LABS: Potassium 3.9 mEq/L (3.5-5.1)
--- NOTE | 2023-12-20 05:50 | EDPHYS ---
Physician Documentation [facility] Name: Patricia Whitaker Age: 48 yrs Sex: Female : 1975 Arrival Date: 12/20/2023 Time: 01:14 Bed 14 Private MD: ED Physician Sergio Moulton HPI: 12/20 01:55 This 48 yrs old Female presents to ER via Ambulatory with complaints of sp4 Abdominal Pain, Diarrhea. 05:44 48-year-old female past medical history of type 2 diabetes, presents with acute onset sp4 of diffuse abdominal pain and associated diarrhea and nausea for the past 8 days. . Historical: - Allergies: 01:41 Iodine; vc1 01:41 Yeast; vc1 - PMHx: 01:41 Diabetes - NIDDM; vc1 - PSHx: 02:17 Ligation of fallopian tube; vc1 - Immunization history:: Adult Immunizations unknown. - Social history:: Smoking status: Patient denies any tobacco usage or history of. - Family history:: not pertinent. ROS: 05:44 Constitutional: Negative for fever, chills, and weight loss, positive abdominal pain, sp4 positive diarrhea, positive nausea. 05:44 All other systems are negative, Exam: 05:44 Constitutional: This is a well developed, well nourished patient who is awake, alert, sp4 and in no acute distress. Head/Face: Normocephalic, atraumatic. Eyes: Pupils equal round and reactive to light, extra-ocular motions intact. Lids and lashes normal. Conjunctiva and sclera are not injected. Cornea within normal limits. Periorbital areas with no swelling, redness, or edema. ENT: Nares patent. No nasal discharge, no septal abnormalities noted. Tympanic membranes are normal and external auditory canals are clear. Oropharynx with no redness, swelling, or masses, exudates, or evidence of obstruction, uvula midline. Mucous membranes moist. Neck: Trachea midline, no thyromegaly or masses palpated, and no cervical lymphadenopathy. Supple, full range of motion without nuchal rigidity, or vertebral point tenderness. Chest/axilla: Normal chest wall appearance and motion. Nontender with no deformity. No lesions are appreciated. Cardiovascular: Regular rate and rhythm with a normal S1 and S2. No gallops, murmurs, or rubs. Normal PMI, no JVD. No pulse deficits. Respiratory: Lungs have equal breath sounds bilaterally, clear to auscultation and percussion. No rales, rhonchi or wheezes noted. No increased work of breathing, no retractions or nasal flaring. Abdomen/GI: Soft, with normal bowel sounds. No distension or tympany. No guarding or rebound. Positive lower abdominal tenderness. Back: No spinal tenderness. No costovertebral tenderness. Skin: Warm, dry with normal turgor. Normal color with no rashes, no lesions, and no evidence of cellulitis. MS/ Extremity: Pulses equal, no cyanosis. Neurovascular intact. Full, normal range of motion. Neuro: Awake and alert, GCS 15, oriented to person, place, time, and situation. Cranial nerves II-XII grossly intact. Motor strength 5/5 in all extremities. Sensory grossly intact. Psych: Awake, alert, with orientation to person, place and time. Behavior, mood, and affect are within normal limits Vital Signs: 01:39 Weight 75.75 kg; Height 5 ft. 6 in. ; Pain 10/10; vc1 02:18 BP 166 / 77; Pulse 84; Resp 18; Temp 98.2; Pulse Ox 100% ; vc1 03:00 BP 162 / 76; Pulse 95; Resp 20; Pulse Ox 100% on R/A; pf1 04:00 BP 153 / 75; Pulse 98; Resp 17; Pulse Ox 97% on R/A; Pain 0/10; pf1 05:00 BP 141 / 77; Pulse 95; Resp 16; Pulse Ox 100% on R/A; Pain 0/10; pf1 05:55 BP 119 / 63; Pulse 93; Resp 17; Pulse Ox 98% ; Pain 0/10; jj7 01:39 Body Mass Index 26.95 (75.75 kg, 167.64 cm) vc1 01:39 Pain Scale: Adult vc1 04:00 Pain Scale: Adult pf1 05:00 Pain Scale: Adult pf1 05:55 Pain Scale: Adult jj7 MDM: 02:41 Patient medically screened. sp4 05:34 ED course: COMPARISON: CT abdomen and pelvis without contrast December 03, 2018. sp4 FINDINGS: Lung bases: Unremarkable. No mass. No consolidation. ABDOMEN: Liver: Unremarkable. Gallbladder and bile ducts: Unremarkable. No calcified stones. No ductal dilation. Pancreas: Unremarkable. No ductal dilation. Spleen: Unremarkable. No splenomegaly. Adrenals: Unremarkable. No mass. Kidneys and ureters: Unremarkable. No obstructing stones. No hydronephrosis. Stomach and bowel: Scattered colonic diverticula. No obstruction. No mucosal thickening. PELVIS: Appendix: The appendix is mildly dilated to 8 mm in diameter, similar to prior. Bladder: There may be diffuse bladder wall thickening, but the bladder is relatively nondistended limiting evaluation. Reproductive: Unremarkable as visualized. ABDOMEN and PELVIS: Intraperitoneal space: Unremarkable. No free air. No significant fluid collection. Bones/joints: Disc space narrowing with degenerative endplate changes at L4-5 and L5-S1. No acute fracture. No dislocation. Soft tissues: Small fat-containing periumbilical hernia. Vasculature: Unremarkable. No abdominal aortic aneurysm. Lymph nodes: Unremarkable. No enlarged lymph nodes. IMPRESSION: There may be diffuse bladder wall thickening, but the bladder is relatively nondistended limiting evaluation. Correlate with any concern for cystitis. Electronically signed by: Zheng Carrington MD 12/20/2023 04:11 AM. 05:46 Differential diagnosis: Nonspecific abd pain, gastritis, appendicitis, diverticulitis, sp4 viral gastroenteritis, gastroenteritis. Data reviewed: vital signs, nurses notes, lab test result(s), radiologic studies, CT scan. ED course: Improved. Will discharge home. . 12/20 01:47 Order name: CBC with Diff; Complete Time: 02:41 sb4 12/20 01:47 Order name: CMP; Complete Time: 05:22 sb4 12/20 01:47 Order name: Lipase; Complete Time: 05:22 sb4 12/20 01:47 Order name: Test, Urine; Complete Time: 02:41 sb4 12/20 01:47 Order name: Urinalysis w/ reflexes; Complete Time: 02:41 sb4 12/20 02:09 Order name: Glucose, Ancillary Testing; Complete Time: 02:41 EDMS 12/20 05:40 Order name: Glucose, Ancillary Testing; Complete Time: 05:56 EDMS 12/20 05:42 Order name: Glucose, Ancillary Testing EDMS 12/20 01:47 Order name: CT Abd/Pelvis - Without Contrast sb4 12/20 01:47 Order name: IV Saline Lock; Complete Time: 02:18 sb4 12/20 01:47 Order name: Labs collected and sent; Complete Time: :18 sb4 Administered Medications: 03:12 Drug: Ondansetron IVP 4 mg IVP once; over 2 minutes Route: IVP; Site: left antecubital; jj7 04:10 Follow up: Response: No adverse reaction; Marked relief of symptoms pf1 03:12 Drug: metoCLOPramide IVP 10 mg IVP once; over 1 to 2 minutes Route: IVP; Site: left [facility] antecubital; 04:10 Follow up: Response: No adverse reaction; Marked relief of symptoms pf1 03:12 Drug: NS 0.9% IV 1000 ml IV at 1 bolus Per protocol; 1000 mL bolus Route: IV; Rate: 1 jj7 bolus; Site: left antecubital; 04:10 Follow up: Response: No adverse reaction; IV Status: Completed infusion; IV Intake: pf1 1000ml 03:13 Drug: morphine IVP or IV 4 mg IVP once over 4 mins Route: IVP; Infused Over: 4 mins; jj7 Site: left antecubital; 03:30 Follow up: Response: Marked relief of symptoms jj7 03:13 Drug: metroNIDAZOLE PO 500 mg PO once Route: PO; jj7 04:00 Follow up: Response: No adverse reaction pf1 03:16 Drug: NS 0.9% IV 1000 ml IV at 1 bolus Per protocol; 1000 mL bolus Route: IV; Rate: 1 jj7 bolus; Site: left antecubital; 04:10 Follow up: Response: No adverse reaction; IV Status: Completed infusion; IV Intake: pf1 1000ml 03:18 Drug: Dicyclomine IM 20 mg IM once Route: IM; Site: right ventrogluteal; jj7 04:10 Follow up: Response: No adverse reaction; Marked relief of symptoms pf1 03:18 Drug: Insulin Regular Human IVP 5 units IVP once {Co-Signature: pf1 (Alissa Manzano jj7 RN).} Route: IVP; Site: left antecubital; 04:00 Follow up: Response: No adverse reaction; Marked relief of symptoms pf1 03:18 Drug: Rocephin - Rocephin (cefTRIAXone) IVPB 1 grams IVPB once over 30 mins; (mix in 50 jj7 mL NS) Route: IVPB; Infused Over: 30 mins; Site: left antecubital; 03:48 Follow up: Response: No adverse reaction; Marked relief of symptoms; IV Status: pf1 Completed infusion; IV Intake: 50ml 05:52 Drug: Diphenoxylate-Atropine PO 2 tabs PO once Route: PO; jj7 06:04 Follow up: Response: No adverse reaction jj7 Disposition Summary: 12/20/23 05:49 Discharge Ordered Notes: Location: Home sp4 Problem: new sp4 Symptoms: have improved sp4 Condition: Stable sp4 Diagnosis - Acute gastroenteritis, acute diarrheal illness sp4 Followup: sp4 - With: Tono Jean DO - When: 7 - 10 days - Reason: Recheck today's complaints Discharge Instructions: - Discharge Summary Sheet sp4 - Diarrhea, Adult, [id number] sp4 - Clear Liquid Diet, Adult, [id number] sp4 Forms: - Patient Portal Instructions sp4 Prescriptions: - Flagyl 500 mg Oral Tablet - take 1 tablet ORAL route every 8 hours for 10 days; 30 tablet; Refills: 0, sp4 Product Selection Permitted - Lomotil 2.5-0.025 mg Oral tablet - take 1 tablet ORAL route every 6 hours As needed PRN diarrhea; 30 tablet; sp4 Refills: 0, Product Selection Permitted - promethazine 25 mg Oral tablet - take 1 tablet ORAL route every 6 hours As needed PRN nausea; 30 tablet; sp4 Refills: 0, Product Selection Permitted - dicyclomine 20 mg Oral tablet - take 1 tablet ORAL route every 6 hours PRN abdominal cramps; 30 tablet; sp4 Refills: 0, Product Selection Permitted Signatures: Dispatcher [employer] Pamela Oviedo RN RN vc1 Darío Aragon RN RN jj7 Lorena Li PA-C PASergio Rapp MD MD sp4 Alissa Manzano RN pf1 Alissa Manzano RN pf1 Corrections: (The following items were deleted from the chart) 02:17 01:41 PSHx: None; vc1 vc1
--- NOTE | 2023-12-20 05:50 | ER ---
Nurse's Notes [facility] Name: Patricia Whitaker Age: 48 yrs Sex: Female : 1975 Arrival Date: 12/20/2023 Time: 01:14 Bed 14 Private MD: Diagnosis: Acute gastroenteritis, acute diarrheal illness Presentation: 12/20 01:39 Chief complaint: Patient states: I have diarrhea for 5 days about 10 oclock tonight I vc1 started having abdominal pain. Coronavirus screen: diarrhea, vomiting. Client presents with at least one sign or symptom that may indicate coronavirus-19. Ebola Screen: Patient negative for fever greater than or equal to 101.5 degrees Fahrenheit, and additional compatible Ebola Virus Disease symptoms Patient denies exposure to infectious person. Patient denies travel to an Ebola-affected area in the 21 days before illness onset. No symptoms or risks identified at this time. Initial Sepsis Screen: Does the patient have a suspected source of infection? Yes: Acute abdominal pain. Risk Assessment: Do you want to hurt yourself or someone else? Patient reports no desire to harm self or others. Onset of symptoms was December 19, 2023 at 22:00. Care prior to arrival: Medication(s) given: ketoralac. 01:39 Method Of Arrival: Ambulatory vc1 01:39 Acuity: JOYCE 3 vc1 01:54 Initial Sepsis Screen: Does the patient meet any 2 criteria? No. Patient's initial vc1 sepsis screen is negative. Triage Assessment: 01:50 General: Appears distressed, uncomfortable, Behavior is cooperative, crying. Pain: vc1 Complains of pain in abdomen Pain radiates to low back area Pain currently is 10 out of 10 on a pain scale. Quality of pain is described as crampy, sharp, Pain began suddenly, 4 hours ago. Is continuous, Also complains of diarrhea, vomiting. EENT: No deficits noted. No signs and/or symptoms were reported regarding the EENT system. Neuro: Level of Consciousness is awake, alert, obeys commands, Oriented to person, place, time, situation, Appropriate for age. Cardiovascular: No deficits noted. Respiratory: Airway is patent Respiratory effort is even, unlabored, Respiratory pattern is regular, symmetrical. GI: Abdomen is flat, non-distended, Reports lower abdominal pain, upper abdominal pain, diarrhea, nausea, vomiting. : No deficits noted. No signs and/or symptoms were reported regarding the genitourinary system. Derm: No deficits noted. No signs and/or symptoms reported regarding the dermatologic system. Musculoskeletal: No deficits noted. No signs and/or symptoms reported regarding the musculoskeletal system. Historical: - Allergies: 01:41 Iodine; vc1 01:41 Yeast; vc1 - PMHx: 01:41 Diabetes - NIDDM; vc1 - PSHx: 02:17 Ligation of fallopian tube; vc1 - Immunization history:: Adult Immunizations unknown. - Social history:: Smoking status: Patient denies any tobacco usage or history of. - Family history:: not pertinent. Screenin:53 [facility] ED Fall Risk Assessment (Adult) History of falling in the last 3 months, vc1 including since admission No falls in past 3 months (0 pts) Confusion or Disorientation No (0 pts) Intoxicated or Sedated No (0 pts) Impaired Gait No (0 pts) Mobility Assist Device Used No (0 pt) Altered Elimination No (0 pt) Score/Fall Risk Level 0 - 2 = Low Risk Oriented to surroundings, Maintained a safe environment, Educated pt \T\ family on fall prevention, incl call for assistance when getting out of bed. Abuse screen: Denies threats or abuse. Nutritional screening: No deficits noted. Tuberculosis screening: No symptoms or risk factors identified. Assessment: 01:42 General: Appears in no apparent distress. uncomfortable, well groomed, well developed, pf1 Behavior is calm, cooperative, appropriate for age, quiet. 01:42 Pain: Complains of pain in abdomen Pain radiates to low back area Pain currently is 10 pf1 out of 10 on a pain scale. Neuro: No deficits noted. Level of Consciousness is awake, alert, obeys commands, Oriented to person, place, time, situation. Cardiovascular: No deficits noted. Capillary refill < 3 seconds Patient's skin is warm and dry. Respiratory: No deficits noted. Airway is patent Respiratory effort is even, unlabored, Respiratory pattern is regular, symmetrical. GI: Abdomen is non-distended, Bowel sounds present X 4 quads. Abd is soft Abdomen is tender to palpation in right lower quadrant and left lower quadrant Reports lower abdominal pain, diarrhea, nausea. : No deficits noted. No signs and/or symptoms were reported regarding the genitourinary system. EENT: No deficits noted. No signs and/or symptoms were reported regarding the EENT system. 02:30 Reassessment: Patient appears in no apparent distress at this time. Patient and/or pf1 family updated on plan of care and expected duration. Pain level reassessed. Patient is alert, oriented x 3, equal unlabored respirations, skin warm/dry/pink. 03:25 Reassessment: Patient appears in no apparent distress at this time. Patient and/or pf1 family updated on plan of care and expected duration. Pain level reassessed. Patient is alert, oriented x 3, equal unlabored respirations, skin warm/dry/pink. Patient states symptoms have improved. 04:30 Reassessment: Patient appears in no apparent distress at this time. Patient and/or pf1 family updated on plan of care and expected duration. Pain level reassessed. Patient is alert, oriented x 3, equal unlabored respirations, skin warm/dry/pink. Patient states feeling better. Patient states symptoms have improved. 05:28 Reassessment: Patient appears in no apparent distress at this time. Patient and/or pf1 family updated on plan of care and expected duration. Pain level reassessed. Patient is alert, oriented x 3, equal unlabored respirations, skin warm/dry/pink. Patient denies pain at this time. Patient states feeling better. Patient states symptoms have improved. Vital Signs: 01:39 Weight 75.75 kg; Height 5 ft. 6 in. ; Pain 10/10; vc1 02:18 BP 166 / 77; Pulse 84; Resp 18; Temp 98.2; Pulse Ox 100% ; vc1 03:00 BP 162 / 76; Pulse 95; Resp 20; Pulse Ox 100% on R/A; pf1 04:00 BP 153 / 75; Pulse 98; Resp 17; Pulse Ox 97% on R/A; Pain 0/10; pf1 05:00 BP 141 / 77; Pulse 95; Resp 16; Pulse Ox 100% on R/A; Pain 0/10; pf1 05:55 BP 119 / 63; Pulse 93; Resp 17; Pulse Ox 98% ; Pain 0/10; jj7 01:39 Body Mass Index 26.95 (75.75 kg, 167.64 cm) vc1 01:39 Pain Scale: Adult vc1 04:00 Pain Scale: Adult pf1 05:00 Pain Scale: Adult pf1 05:55 Pain Scale: Adult jj7 ED Course: 01:18 Patient arrived in ED. jj6 01:41 Triage completed. vc1 01:42 Arm band placed on right wrist. vc1 01:54 Patient has correct armband on for positive identification. Bed in low position. Call vc1 light in reach. Pulse ox on. NIBP on. 01:55 Sergio Moulton MD is Attending Physician. sp4 02:15 No provider procedures requiring assistance completed. Inserted saline lock: 22 gauge pf1 in right antecubital area, using aseptic technique. Blood collected. 02:18 CBC with Diff Sent. pf1 02:18 CMP Sent. pf1 02:18 Lipase Sent. pf1 02:20 Test, Urine Sent. pf1 02:20 Urinalysis w/ reflexes Sent. pf1 03:00 IV discontinued, intact, bleeding controlled, No redness/swelling at site. Pressure pf1 dressing applied, 22 gauge RAC. 03:05 CT Abd/Pelvis - Without Contrast In Process Unspecified. EDMS 03:06 Inserted saline lock: 20 gauge in left antecubital area, using aseptic technique. jj7 05:47 Glucose, Ancillary Testing Sent. pf1 05:49 Tono Jean DO is Referral Physician. sp4 Administered Medications: 03:12 Drug: Ondansetron IVP 4 mg IVP once; over 2 minutes Route: IVP; Site: left antecubital; jj7 04:10 Follow up: Response: No adverse reaction; Marked relief of symptoms pf1 03:12 Drug: metoCLOPramide IVP 10 mg IVP once; over 1 to 2 minutes Route: IVP; Site: left jj7 antecubital; 04:10 Follow up: Response: No adverse reaction; Marked relief of symptoms pf1 03:12 Drug: NS 0.9% IV 1000 ml IV at 1 bolus Per protocol; 1000 mL bolus Route: IV; Rate: 1 jj7 bolus; Site: left antecubital; 04:10 Follow up: Response: No adverse reaction; IV Status: Completed infusion; IV Intake: pf1 1000ml 03:13 Drug: morphine IVP or IV 4 mg IVP once over 4 mins Route: IVP; Infused Over: 4 mins; jj7 Site: left antecubital; 03:30 Follow up: Response: Marked relief of symptoms jj7 03:13 Drug: metroNIDAZOLE PO 500 mg PO once Route: PO; jj7 04:00 Follow up: Response: No adverse reaction pf1 03:16 Drug: NS 0.9% IV 1000 ml IV at 1 bolus Per protocol; 1000 mL bolus Route: IV; Rate: 1 jj7 bolus; Site: left antecubital; 04:10 Follow up: Response: No adverse reaction; IV Status: Completed infusion; IV Intake: pf1 1000ml 03:18 Drug: Dicyclomine IM 20 mg IM once Route: IM; Site: right ventrogluteal; jj7 04:10 Follow up: Response: No adverse reaction; Marked relief of symptoms pf1 03:18 Drug: Insulin Regular Human IVP 5 units IVP once {Co-Signature: pf1 (Alissa Manzano jj7 RN).} Route: IVP; Site: left antecubital; 04:00 Follow up: Response: No adverse reaction; Marked relief of symptoms pf1 03:18 Drug: Rocephin - Rocephin (cefTRIAXone) IVPB 1 grams IVPB once over 30 mins; (mix in 50 jj7 mL NS) Route: IVPB; Infused Over: 30 mins; Site: left antecubital; 03:48 Follow up: Response: No adverse reaction; Marked relief of symptoms; IV Status: pf1 Completed infusion; IV Intake: 50ml 05:52 Drug: Diphenoxylate-Atropine PO 2 tabs PO once Route: PO; jj7 06:04 Follow up: Response: No adverse reaction jj7 Medication: 01:54 VIS not applicable for this client. vc1 Intake: 03:48 IV: 50ml; Total: 50ml. pf1 04:10 IV: 1000ml; Total: 1050ml. pf1 04:10 IV: 1000ml; Total: 2050ml. pf1 Outcome: 05:49 Discharge ordered by sp4 05:55 Discharged to home ambulatory, with significant other, jj7 05:55 Condition: improved 05:55 Discharge instructions given to patient, Instructed on discharge instructions, medication usage, CLEAT LIQUID DIET Demonstrated understanding of instructions, medications, CLEAR LIQ DIET Prescriptions given X 4, 06:03 Patient left the ED. jj7 Signatures: Dispatcher [employer] Ana María Mendez jj6 Pamela Mak RN RN vc1 Darío Aragon RN RN jj7 Alissa Manzano RN RN pf1 Sergio Moulton MD MD sp4 Alissa Manzano RN pf1 Corrections: (The following items were deleted from the chart) 02:17 01:41 PSHx: None; vc1 vc1
[2023-12-20 06:14] VITALS: TEMP 98.2
[2023-12-20 06:33] VITALS: BP 119/63; O2SAT 98
--- NOTE | 2023-12-20 18:41 | RAD REPORT ---
EXAM DESCRIPTION: CT Abdomen and Pelvis Without Intravenous Contrast CLINICAL HISTORY: The patient is 48 years old and is Female; ABD PAIN TECHNIQUE: Axial computed tomography images of the abdomen and pelvis without intravenous contrast. Sagittal and coronal reformatted images were created and reviewed. This CT exam was performed usi ng one or more of the following dose reduction techniques: automated exposure control, adjustment o f the mA and/or kV according to patient size, and/or use of iterative reconstruction technique. COMPARISON: CT abdomen and pelvis without contrast December 03, 2018. FINDINGS: Lung bases: Unremarkable. No mass. No consolidation. ABDOMEN: Liver: Unremarkable. Gallbladder and bile ducts: Unremarkable. No calcified stones. No ductal dilation. Pancreas: Unremarkable. No ductal dilation. Spleen: Unremarkable. No splenomegaly. Adrenals: Unremarkable. No mass. Kidneys and ureters: Unremarkable. No obstructing stones. No hydronephrosis. Stomach and bowel: Scattered colonic diverticula. No obstruction. No mucosal thickening. PELVIS: Appendix: The appendix is mildly dilated to 8 mm in diameter, similar to prior. Bladder: There may be diffuse bladder wall thickening, but the bladder is relatively nondistended limiting evaluation. Reproductive: Unremarkable as visualized. ABDOMEN and PELVIS: Intraperitoneal space: Unremarkable. No free air. No significant fluid collection. Bones/joints: Disc space narrowing with degenerative endplate changes at L4-5 and L5-S1. No acute fracture. No dislocation. Soft tissues: Small fat-containing periumbilical hernia. Vasculature: Unremarkable. No abdominal aortic aneurysm. Lymph nodes: Unremarkable. No enlarged lymph nodes. IMPRESSION: There may be diffuse bladder wall thickening, but the bladder is relatively nondistended limiting evaluation. Correlate with any concern for cystitis. Electronically signed by: Zheng Carrington MD 12/20/2023 04:11 AM DUMPSTER OPERATOR Due to temporary technical issues with the PACS/Fluency reporting system, reports are being signed by the in house radiologists without review as a courtesy to insure prompt reporting. The interpreting radiologist is fully responsible for the content of the report.
== END ==
LOC: ER 01:14
DX: K52.9 Noninfective gastroenteritis and colitis, unspecified (principal); Z91.018 Allergy to other foods; Z91.048 Other nonmedicinal substance allergy status
CPT/HCPCS: 36415; 74176; 80053; 81001; 81025; 82947; 83690; 85025; J0500; J0696; J1815; J2405; J2765; J7030